=== PATIENT | male | born 1960 | race Caucasian/White ===

== ENCOUNTER 2017-01-15 15:03 | Outpatient (RCR) | payer BC ==
[2017-02-02] MEDS ORDERED: CELEBREX 200MG200 MG PO (15:04)
[2017-02-02] MEDS ORDERED: NORCO 325 MG-51 TAB PO (15:06)
[2017-02-02] MEDS ORDERED: ENSURE PLUS 23237 ML PO (15:09)
[2017-02-18] MEDS ORDERED: DAZIDOX10 MG PO (21:21)
[2017-03-01] MEDS ORDERED: ALDACTONE 100M100 MG PO (11:08)
[2017-03-01] MEDS ORDERED: LASIX 40MG TABL40 MG PO (11:08)
== END 2017-04-15 | disposition home or self-care (01) ==
LOC: WSST
DX: R13.12 Dysphagia, oropharyngeal phase (principal); C02.8 Malignant neoplasm of overlapping sites of tongue; I10 Essential (primary) hypertension; D69.6 Thrombocytopenia, unspecified; K76.89 Other specified diseases of liver

== ENCOUNTER 2017-02-02 14:13 | Day surgery (SDC) | payer BC ==
[~2017-02-02] VITALS: Ht 182.9 cm; Wt 79.6 kg
[2017-02-02 14:54] VITALS: BP 147/90; PULSE 93; TEMP 98.6
[2017-02-02] MEDS ORDERED: CELEBREX 200MG200 MG PO (15:04)
[2017-02-02] MEDS ORDERED: NORCO 325 MG-51 TAB PO (15:06)
[2017-02-02] MEDS ORDERED: ENSURE PLUS 23237 ML PO (15:09)
[2017-02-02 21:10] VITALS: BP 118/78; PULSE 118; TEMP 97.8
[2017-02-02 21:30] VITALS: BP 113/75; PULSE 114
[2017-02-02 21:45] VITALS: BP 132/85; PULSE 113
[2017-02-02 22:00] VITALS: BP 118/73; PULSE 111
[2017-02-02 22:30] VITALS: BP 117/78; PULSE 113
== END 2017-02-02 23:46 | disposition home or self-care (01) ==
LOC: SDCO 14:13 → SURG 21:31 → SDCO 23:46
DX: M27.0 Developmental disorders of jaws (principal); K02.9 Dental caries, unspecified; C02.9 Malignant neoplasm of tongue, unspecified; I10 Essential (primary) hypertension; K76.89 Other specified diseases of liver; F17.210 Nicotine dependence, cigarettes, uncomplicated; Z95.9 Presence of cardiac and vascular implant and graft, unspecified; D64.9 Anemia, unspecified
CPT/HCPCS: OP; J0295; J0330; J1100; J2405; J2704; J2765; J3010; J7120

== ENCOUNTER 2017-02-18 21:14 | Emergency (ER) | payer BC ==
[~2017-02-18] VITALS: Ht 182.9 cm; Wt 85.5 kg
[~2017-02-18 21:14] MED LIST: CELEBREX 200MG200 MG PO; ENSURE PLUS 23237 ML PO; NORCO 325 MG-51 TAB PO
[2017-02-18 21:16] VITALS: BP 174/77; TEMP 98.8
[2017-02-18] MEDS ORDERED: DAZIDOX10 MG PO (21:21)
[2017-02-18 22:12] LABS: BASO # 0.1 (0.0-0.2); BASO % 0.6 % (0.0-2.0); EOS # 0.3 (0.0-0.7); EOS % 4.2 % (0-4.0); GRAN # 5.3 (1.4-6.5); GRAN % 67.5 % (42.2-75.2); HEMOGLOBIN 12.6 g/dl (13.5-18.0); LYMPH # 1.5 (1.2-3.4); LYMPH % 19.3 % (20.0-51.0); MEAN CELL VOLUME 102 fl (80.0-100.0); MEAN CORPUSCULAR HEMOGLOBIN 35 pg (27.0-31.0); MEAN CORPUSCULAR HGB CONC 35 g/dl (33.0-37.0); MEAN PLATELET VOLUME 11.4 fl (7.4-10.4); MONO # 0.6 (0.1-0.6); MONO % 8.1 % (1.7-9.3); PLATELET COUNT 75 K/mm3 (130-400); RED BLOOD COUNT 3.58 M/mm3 (4.20-5.60); REDCELL DISTRIBUTION WIDTH-CV 16.9 % (11.5-14.5); WHITE BLOOD COUNT 7.9 K/mm3 (4.8-10.8)
[2017-02-18 22:13] LABS: HEMATOCRIT 36.4 % (42.0-52.0)
[2017-02-18 22:20] LABS: INR 1.4 (0.8-3.0); PROTHROMBIN TIME 15.2 SECONDS (9.7-12.8)
[2017-02-18 22:21] LABS: ADJUSTED CALCIUM 9.4 mg/dL (8.4-10.2); ALBUMIN 2.8 gm/dL (3.5-5.0); BILIRUBIN,TOTAL 3.1 mg/dL (0.0-1.0); CALCIUM 8.4 mg/dL (8.4-10.2); CREATININE, serum 0.56 mg/dL (0.66-1.25); POTASSIUM 3.6 mmol/L (3.4-5.0); TOTAL PROTEIN 6.9 gm/dL (6.4-8.2)
[2017-02-18 23:42] VITALS: PULSE 90
== END 2017-02-18 23:42 | disposition home or self-care (01) ==
LOC: COL.ER 21:14
PROVIDERS: Emergency Medicine
DX: R14.0 Abdominal distension (gaseous) (principal); F82 Specific developmental disorder of motor function; I10 Essential (primary) hypertension; F17.210 Nicotine dependence, cigarettes, uncomplicated; Z86.19 Personal history of other infectious and parasitic diseases; Z85.810 Personal history of malignant neoplasm of tongue

== ENCOUNTER → 2017-03-02 | Outpatient (CLI) | payer BC ==
[~2017-03-02] VITALS: Ht 182.9 cm; Wt 73.8 kg
[~2017-03-02] MED LIST changes: +ALDACTONE 100M100 MG PO; +DAZIDOX10 MG PO; +LASIX 40MG TABL40 MG PO
[2017-03-02 12:25] VITALS: BP 127/84; PULSE 94
[2017-03-02 13:46] VITALS: BP 139/91; PULSE 68
[2017-03-02 14:01] VITALS: BP 138/89; PULSE 73
== END ==
LOC: COL.RAD 12:00
DX: C02.8 Malignant neoplasm of overlapping sites of tongue (principal); Z90.49 Acquired absence of other specified parts of digestive tract
CPT/HCPCS: 25581

== ENCOUNTER 2017-04-07 13:15 | Emergency (ER) | payer BC ==
[~2017-04-07] VITALS: Ht 182.9 cm; Wt 71.4 kg
[2017-04-07 13:21] VITALS: BP 129/75; TEMP 98.5
[2017-04-07 15:14] VITALS: PULSE 112
== END 2017-04-07 15:15 | disposition home or self-care (01) ==
LOC: COL.ER 13:15
DX: K94.23 Gastrostomy malfunction (principal); C06.9 Malignant neoplasm of mouth, unspecified

== ENCOUNTER → 2017-05-03 | Outpatient (CLI) | payer BC ==
[~2017-05-03] VITALS: Ht 182.9 cm; Wt 72.7 kg
[~2017-05-03] MED LIST changes: +ALBUTEROL0.83 MG/ML IH; +AMBIEN 5MG TABLE5 MG PO; +ATIVAN 2MG/ML2 MG/ML IV; +FENTANYL 25 MCG; +HALDOL 5MG/ML5 MG/ML IV; +MORP4 IV; +OXYCODONE H5 MG/5 ML PO; +PERIDEX (CHLOR480 ML MM; +ROBINUL1ML IV; +TRANSDERM-0.5 MG/21 TD; +ZOFRAN INJ4 MG/2 ML IV
[2017-05-03 13:14] VITALS: BP 144/90; PULSE 95
[2017-05-03 15:02] VITALS: BP 143/89; PULSE 89
[2017-05-03 15:27] LABS: PERITONEAL -POLYMORPHONUCLEAR 8.3 % (0-25); PERITONEAL FLUID RBC 0 /mm3 (0-0)
== END ==
LOC: COL.RAD 12:11
PROVIDERS: Physician Assistant
DX: K74.60 Unspecified cirrhosis of liver (principal); R18.8 Other ascites; B18.2 Chronic viral hepatitis C; C02.9 Malignant neoplasm of tongue, unspecified
CPT/HCPCS: 19804

== ENCOUNTER 2017-05-08 15:03 | Inpatient (IN) | payer BC ==
[~2017-05-08] VITALS: Ht 182.9 cm; Wt 68.7 kg
[~2017-05-08 15:03] MED LIST changes: -ALBUTEROL0.83 MG/ML IH; -ATIVAN 2MG/ML2 MG/ML IV; -HALDOL 5MG/ML5 MG/ML IV; -MORP4 IV; -PERIDEX (CHLOR480 ML MM; -ROBINUL1ML IV; -TRANSDERM-0.5 MG/21 TD; -ZOFRAN INJ4 MG/2 ML IV
[2017-05-08 16:22] LABS: HEMATOCRIT 39.9 % (42.0-52.0); HEMOGLOBIN 13.7 g/dl (13.5-18.0); MEAN CELL VOLUME 106 fl (80.0-100.0); MEAN CORPUSCULAR HEMOGLOBIN 36 pg (27.0-31.0); MEAN CORPUSCULAR HGB CONC 34 g/dl (33.0-37.0); MEAN PLATELET VOLUME 10.6 fl (7.4-10.4); PLATELET COUNT 167 K/mm3 (130-400); RED BLOOD COUNT 3.76 M/mm3 (4.20-5.60); WHITE BLOOD COUNT 14.4 K/mm3 (4.8-10.8)
[2017-05-08 16:30] LABS: ADD PATHOLOGY DIFF REVIEW NO
[2017-05-08 16:31] LABS: ADJUSTED CALCIUM 10.3 mg/dL (8.4-10.2); ALANINE AMINOTRANSFERASE 42 U/L (21-72); ALBUMIN 2.8 gm/dL (3.5-5.0); ALKALINE PHOSPHATASE 105 U/L (50-136); ANION GAP 7 mmol/L (7-16); BILIRUBIN,TOTAL 3.5 mg/dL (0.0-1.0); BLOOD UREA NITROGEN 14 mg/dL (9-20); CALCIUM 9.3 mg/dL (8.4-10.2); CARBON DIOXIDE 26 mmol/L (22-30); CHLORIDE 101 mmol/L (98-107); CREATININE, serum 0.55 mg/dL (0.66-1.25); GLUCOSE 128 mg/dL (74-106); POTASSIUM 3.8 mmol/L (3.4-5.0); SODIUM 135 mmol/L (137-145); TOTAL PROTEIN 6.3 gm/dL (6.4-8.2)
[2017-05-08 16:43] LABS: COLLECTION METHOD CATHETER
[2017-05-08 16:57] LABS: MUCOUS Present /lpf; PH 5 (5-8); SQUAMOUS EPITHELIAL 0-2 /hpf; URINE APPEARANCE Clear; URINE BACTERIA None Seen /hpf; URINE BILIRUBIN Positive (NEGATIVE); URINE BLOOD Negative (NEGATIVE); URINE COLOR Amber; URINE GLUCOSE Negative (NEGATIVE); URINE KETONE Negative (NEGATIVE); URINE LEUKOCYTE ESTERASE Negative (NEGATIVE); URINE PROTEIN(semi-quant) 1+ (NEGATIVE); URINE RBC 0-2 /hpf; URINE UROBILINOGEN >=4.0 mg/dL (NEGATIVE)
[2017-05-08] MEDS ORDERED: PERIDEX (CHLOR480 ML MM (18:01)
[2017-05-08 18:13] LABS: BAND 34 % (0-10); EOSINOPHIL 1 % (0-4); LYMPHOCYTE 6 % (20.0-51.0); NEUTROPHILS 52 % (42.0-75.2); TOTAL CELLS COUNTED 100
[2017-05-08 18:15] LABS: PLATELET ESTIMATE NORMAL (NORMAL)
[2017-05-08 18:16] LABS: ANISOCYTOSIS 1+
[2017-05-08 20:24] LABS: TROPONIN-I < 0.012 ng/mL (0.000-0.034)
[2017-05-08 20:34] LABS: INR 1.6 (0.8-3.0); PROTHROMBIN TIME 18.1 SECONDS (9.7-12.8)
[2017-05-08 20:37] LABS: PARTIAL THROMBOPLASTIN TIME 43.1 SECONDS (26.0-37.0)
[2017-05-08 21:00] LABS: SALICYLATE < 1.0 mg/dL
[2017-05-08 21:42] LABS: ARTERIAL BLD GAS O2 SATURATION 91.7 % (92-100); ARTERIAL BLD GAS TCO2 CT 20.5; ARTERIAL BLOOD GAS BASE EXCESS -3.8 (-2-2); ARTERIAL BLOOD GAS HCO3 19.6 meq/L (22-26); ARTERIAL BLOOD GAS PHT 7.42 C (7.35-7.45); ARTERIAL BLOOD GAS PO2 65.9 mmHg (80-100); ARTERIAL BLOOD GAS PO2T 65.9 (80-100); ARTERIAL BLOOD GAS pH 7.42 (7.35-7.45); OXYHEMOGLOBIN 90.3 %
[2017-05-08 21:43] LABS: ALLEN TEST YES; ALLENS TEST RESULT PASS; ATS? YES
[2017-05-08 22:00] VITALS: BP 113/65; PULSE 98
[2017-05-08 22:02] LABS: VENOUS BLOOD GAS BE 0.5 (-4-4); VENOUS BLOOD GAS SAO2 81.1 % (60-80); VENOUS BLOOD GAS SITE CENTRAL LINE
[2017-05-08 22:22] VITALS: BP 124/87; PULSE 106; TEMP 98
[2017-05-09 02:00] VITALS: BP 98/71; PULSE 108
[2017-05-09 02:56] LABS: HEMATOCRIT 37.6 % (42.0-52.0); HEMOGLOBIN 12.7 g/dl (13.5-18.0); MEAN CELL VOLUME 107 fl (80.0-100.0); MEAN CORPUSCULAR HEMOGLOBIN 36 pg (27.0-31.0); MEAN CORPUSCULAR HGB CONC 34 g/dl (33.0-37.0); MEAN PLATELET VOLUME 10.2 fl (7.4-10.4); PLATELET COUNT 131 K/mm3 (130-400); WHITE BLOOD COUNT 16.7 K/mm3 (4.8-10.8)
[2017-05-09 02:57] LABS: ADD PATHOLOGY DIFF REVIEW NO
[2017-05-09 03:03] LABS: INR 1.8 (0.8-3.0); PROTHROMBIN TIME 19.9 SECONDS (9.7-12.8)
[2017-05-09 03:07] LABS: ADJUSTED CALCIUM 10.2 mg/dL (8.4-10.2); ALBUMIN 2.4 gm/dL (3.5-5.0); BILIRUBIN,TOTAL 3.5 mg/dL (0.0-1.0); CALCIUM 8.9 mg/dL (8.4-10.2); CREATININE, serum 0.51 mg/dL (0.66-1.25); TOTAL PROTEIN 5.7 gm/dL (6.4-8.2)
[2017-05-09 03:18] LABS: BAND 21 % (0-10); LYMPHOCYTE 7 % (20.0-51.0); NEUTROPHILS 62 % (42.0-75.2); TOTAL CELLS COUNTED 100
[2017-05-09 03:20] LABS: ANISOCYTOSIS 2+; BURR CELLS 2+; POLYCHROMASIA 1+
[2017-05-09 05:32] LABS: ARTERIAL BLD GAS O2 SATURATION 94.6 % (92-100); ARTERIAL BLD GAS TCO2 CT 26.3; ARTERIAL BLOOD GAS BASE EXCESS 0.5 (-2-2); ARTERIAL BLOOD GAS HCO3 25.1 meq/L (22-26); ARTERIAL BLOOD GAS PHT 7.41 C (7.35-7.45); ARTERIAL BLOOD GAS PO2 78.3 mmHg (80-100); ARTERIAL BLOOD GAS PO2T 78.3 (80-100); ARTERIAL BLOOD GAS pH 7.41 (7.35-7.45); OXYHEMOGLOBIN 93.2 %
[2017-05-09 05:34] LABS: ALLEN TEST YES; ALLENS TEST RESULT PASS; ATS? YES
[2017-05-09 06:00] VITALS: BP 110/72; PULSE 103; TEMP 98.7
[2017-05-09 13:01] VITALS: BP 114/91; PULSE 111; TEMP 98.7
[2017-05-10] MEDS ORDERED: ROBINUL1ML IV (10:45)
[2017-05-10] MEDS ORDERED: ALBUTEROL0.83 MG/ML IH (10:45)
[2017-05-10] MEDS ORDERED: ATIVAN 2MG/ML2 MG/ML IV (10:46)
[2017-05-10] MEDS ORDERED: HALDOL 5MG/ML5 MG/ML IV (10:46)
[2017-05-10] MEDS ORDERED: MORP4 IV (10:46)
[2017-05-10] MEDS ORDERED: TRANSDERM-0.5 MG/21 TD (10:47)
[2017-05-10] MEDS ORDERED: ZOFRAN INJ4 MG/2 ML IV (10:47)
== END 2017-05-10 14:05 | disposition hospice, inpatient (51) | DRG 871 ==
LOC: COL.ER 15:03 → ICU 18:44 → MEDICAL 05-09 19:51
PROVIDERS: Internal Medicine Gastroenterology; Nurse Practitioner Family; Physician Assistant
PROC: 0DB68ZX Excision of Stomach, Via Natural or Artificial Opening Endoscopic, Diagnostic (ICD-10-PCS; principal; 2017-05-09 08:00)
DX: A41.9 Sepsis, unspecified organism (principal); K65.2 Spontaneous bacterial peritonitis; E43 Unspecified severe protein-calorie malnutrition; K76.6 Portal hypertension; Z51.5 Encounter for palliative care; Z66 Do not resuscitate; I85.10 Secondary esophageal varices without bleeding; R64 Cachexia; I10 Essential (primary) hypertension; K72.10 Chronic hepatic failure without coma; B18.2 Chronic viral hepatitis C; J44.9 Chronic obstructive pulmonary disease, unspecified; C76.0 Malignant neoplasm of head, face and neck; F17.210 Nicotine dependence, cigarettes, uncomplicated; F10.21 Alcohol dependence, in remission; K70.31 Alcoholic cirrhosis of liver with ascites; E86.0 Dehydration; K21.0 Gastro-esophageal reflux disease with esophagitis; K29.30 Chronic superficial gastritis without bleeding; K29.80 Duodenitis without bleeding
CPT/HCPCS: 99223-AI; 99231-AI; 99238; J0696; J1170; J1644; J2250; J2270; J2405; J2543; J2704; J7030; J7050; Q9967